=== PATIENT | male | born 1950 | race Caucasian/White ===

== ENCOUNTER → 2017-06-02 | Outpatient (CLI) | payer OTHER ==
[~2017-06-02] MED LIST: ASPI81CH PO; ATOR10 PO; CEPH500 PO; Dyazide 37.5-21 EACH PO; OXYACE5T PO
== END | disposition home or self-care (01) ==
LOC: LAB SHORT 14:47 → LAB 14:47
DX: R22.1 Localized swelling, mass and lump, neck (principal)
CPT/HCPCS: 87070; 87077; 87205

== ENCOUNTER → 2019-04-03 | Outpatient (CLI) | payer OTHER | LOC: LAB SHORT 09:00 → LAB 09:00 | DX: L72.3 Sebaceous cyst (principal) | CPT/HCPCS: 87070; 87075; 87205 ==

== ENCOUNTER 2020-01-31 07:05 | Day surgery (SDC) | payer OTHER ==
[~2020-01-31] VITALS: Ht 165.1 cm; Wt 94.0 kg
[~2020-01-31 07:05] MED LIST changes: +MAGNESIUM GLU27.5 MG PO; +METF500C PO; +POTA10T PO
== END 2020-01-31 09:02 | disposition home or self-care (01) ==
LOC: ORSCSDS 07:05
PROVIDERS: Surgery
PROC: 0DBL8ZX Excision of Transverse Colon, Via Natural or Artificial Opening Endoscopic, Diagnostic (ICD-10-PCS; principal; 2020-01-31 08:15)
PROC: 0DBK8ZX Excision of Ascending Colon, Via Natural or Artificial Opening Endoscopic, Diagnostic (ICD-10-PCS; principal; 2020-01-31 08:15)
DX: Z12.11 Encounter for screening for malignant neoplasm of colon (principal); Z86.010 Personal history of colon polyps; D12.2 Benign neoplasm of ascending colon; D12.3 Benign neoplasm of transverse colon; E11.9 Type 2 diabetes mellitus without complications; E78.5 Hyperlipidemia, unspecified; Z79.899 Other long term (current) drug therapy; Z79.84 Long term (current) use of oral hypoglycemic drugs; Z79.82 Long term (current) use of aspirin
CPT/HCPCS: 82947; 88305; J0461; J2405; J2704; J7120

== ENCOUNTER → 2020-02-05 | Outpatient (CLI) | payer OTHER | END | disposition home or self-care (01) | LOC: LAB SHORT 07:39 → PLD 07:39 | DX: D48.5 Neoplasm of uncertain behavior of skin (principal); L72.9 Follicular cyst of the skin and subcutaneous tissue, unspecified | CPT/HCPCS: 88304 ==

== ENCOUNTER → 2021-06-04 | Outpatient (CLI) | payer OTHER | END | disposition home or self-care (01) | LOC: LAB 10:59 → PLD 10:59 → LAB SHORT 10:59 | DX: L82.1 Other seborrheic keratosis (principal) | CPT/HCPCS: 88305 ==